=== PATIENT | male | born 1990 | race Caucasian/White ===

== ENCOUNTER 2023-05-16 12:12 | Emergency (ER) | payer MEDICAID ==
[~2023-05-16] VITALS: Ht 177.8 cm; Wt 64.9 kg
[2023-05-16 13:37] VITALS: BP 105/68; PULSE 96; RESP 18; TEMP 98.1; O2SAT 98
[2023-05-16] MEDS ORDERED: CLON0.1T16 PO (16:49)
[2023-05-16] MEDS ORDERED: ONDA-188 SL (16:49)
[2023-05-16] MEDS ORDERED: HYDR25CA1 PO (16:49)
[2023-05-16 16:51] VITALS: BP 132/87; PULSE 97; RESP 20; TEMP 97.8; O2SAT 99
== END 2023-05-16 17:01 | disposition home or self-care (01) ==
LOC: MED 12:12
DX: F11.90 Opioid use, unspecified, uncomplicated (principal); Z79.899 Other long term (current) drug therapy
CPT/HCPCS: 71045; 82948; 99283